=== PATIENT | female | born 1950 | race Caucasian/White ===

== ENCOUNTER 2024-12-11 13:00 | Outpatient (AMB) | payer MEDICARE, SELFPAY ==
--- OUTSIDE RECORDS SUMMARY | 2024-12-10 23:59 | XMS_ITS | Continuity of Care Document ---
Author Organization [facility] Address [address] [place] [address] [address], [address] [place] [address]- Care Team Providers Care Nuisance Animal Damage Control Agent Name Role Phone Jewel Monique MD Primary Care Physician [id number] Date(s): 12/03/24 - 12/10/24 [facility] [address] [place] [address] Drive [address] [place], [place] [address] Attending Physician: Juan Ramon Talbot MD Referring Physician: Jewel Monique MD Encounter Type: Office Visit Allergies, Adverse Reactions, Alerts Substance Criticality Severity Reaction Reaction Severity Status atenolol Active cloNIDine Active Medications Amlodipine By Mouth, Daily, 0 Refills, Maintenance, 12/03/24 8:34:00 AM EDT, Partial fill upon patient request if the prescription is for a schedule II opioid drug. Start Date: 12/03/24 Status: Ordered Repeat number: 1 Clonazepam By Mouth, 3 times a day, 0 Refills, Maintenance, 12/03/24 8:33:00 AM EDT, Partial fill upon patient request if the prescription is for a schedule II opioid drug. Start Date: 12/03/24 Status: Ordered Repeat number: 1 Flexeril 10 mg oral tablet By Mouth, Refills 0, Maintenance, 12/03/24 8:34:00 AM EDT, Partial fill upon patient request if the prescription is for a schedule II opioid drug. Start Date: 12/03/24 Status: Ordered Repeat number: 1 Losartan By Mouth, Daily, 0 Refills, Maintenance, 12/03/24 8:33:00 AM EDT, Partial fill upon patient request if the prescription is for a schedule II opioid drug. Start Date: 12/03/24 Status: Ordered Repeat number: 1 Wellbutrin By Mouth, 0 Refills, Maintenance, 12/03/24 8:33:00 AM EDT, Partial fill upon patient request if the prescription is for a schedule II opioid drug. Start Date: 12/03/24 Status: Ordered Repeat number: 1 Patient Care team information Care Team Personnel Name: Eneida MCCORMICK, Jewel Colunga Position: Reference Physician Member Role: PCP Address: [address] [place] [address] Telecom: Care Team Related Persons Name: LUIS EDUARDO AGUSTIN Insurance Providers Guarantor name: RACHELLE Health Plan Information #: 1 Payer: MEDICARE B Payer Identifier: Member Number: [id number] Group Number: Subscriber Identifier: [id number] Relationship to Subscriber: self Coverage Type: NA Coverage Verification Date: Telecom: Address: Health Plan Information #: 2 Payer: MEDEX SECONDARY ONLY Payer Identifier: Member Number: [id number] Group Number: Subscriber Identifier: [id number] Relationship to Subscriber: self Coverage Type: Medicare Other Coverage Verification Date: Telecom: Address:
--- NOTE | 2024-12-11 13:02 | A.OFFVIS_ITS ---
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 She complains on pain in the projection of the left hip trochanteric area without radiation, she also complained on pain in the right hip in the same area which she reported was treated by Dr. Rose from [facility] with 2 injections addressing pain, (Dr. Rose in his referral note stated that he perform sacroiliac joint injection however the patient states that the needles went into the trochanteric area and iliac crest.) She also complains on pain in the axial lower back which is aggravated with prolonged walking. She in fact was referred to this office by Dr. Rose t o perform sacroiliac joint fusion. She is reporting pain 7-10 out of 10 in the left trochanteric area, she reports no pain in the right trochanteric area after the steroid injections. And she reports pain 5 to 6/10 in the central lower back after walking. She also stated that the left hip was replaced and now her left leg is longer than the right leg. She reports that movements aggravate her pain. Heat applications cold applications and oral medications make her pain better. In terms of tissue damage he describes her pain as sharp, stabbing, searing, tingling, sore, aching, tiring, punishing, spreading, piercing sensation. She had an MRI of the lumbar spine and pelvis performed by [facility]. She had CT scan of the right hip performed in the [facility]. She was examined by Dr. Talbot from [facility] who diagnose her with spinal stenosis and told her that in the future she might need L4-L5 fusion for her lumbar spine. She currently completed 12 sessions of physical therapy and she continues home exercise program. She reports minimal and short-lived pain relief after physical therapy. In the past she tried 10s unit but not for the areas of the above discussed pain. She received injections as described above from Dr. Rose. Past medical history significant for hypertension, fatigue, depression and anxiety, digestive problems, arthritis, history of ovarian cyst surgery. Other surgical history includes breast biopsy for LCIS, and she had total hip replacement on the left in 2023. She denies smoking cigarettes admits 7-8 glasses of alcohol a week, she admits 2 cups of coffee a day and she denies recreational drugs. Review of Systems Const All systems reviewed & are unremarkable except as noted in HPI and below ENT Reports Normal hearing present Neuro Reports Normal hearing present, Denies Abnormal speech present, Denies confusion and Denies Sensory deficit (Neuro) Psych Denies confusion Physical Exam Vital Signs: Last Vital Signs Pulse 80 12/11/24 13:03 Resp 18 12/11/24 13:03 Pulse Ox 97 12/11/24 13:03 Oxygen Delivery Method Room Air 12/11/24 13:03 BMI result Body Mass Index 24.5 Const General: no acute distress; No confusion Orientation/consciousness: patient oriented x3 and No confusion Eyes General: appearance normal, both eyes and all related structures Pupils: Equal, round and reactive pupils present EOM: EOMs intact bilaterally Neck Neck: Yes full ROM Chest Chest palpation & inspection: normal inspection of the chest Resp Effort & Inspection: normal respiratory effort, able to speak in complete sentences, normal respiratory pattern, no audible wheezes and no cough Cardio Jugular venous distension: no JVD GI Inspection: Yes normal to inspection Back/Spine/Pelvis Other: Palomo test negative bilaterally. Gaenslen test is negative bilaterally. Pelvic compression test and pelvic distraction tests are negative bilaterally. No tenderness on palpation in projection of bilateral sacroiliac joints. Neuro General: patient oriented x3, gait normal and No confusion Cranial nerves: Yes CN's II-XII intact bilaterally, Yes Equal, round and reactive pupils present, Yes Normal hearing present and Yes Ability to bilaterally elevate shoulders present Speech: No Abnormal speech present Gait exam (Neuro): Normal gait present Motor exam (neuro): 5/5 motor strength present throughout Sensory Exam: No Sensory deficit (Neuro) Extrem Other: Very well-healed scar on the lateral surface of the left hip without the signs of inflammation or infection. General: No pedal edema Psych Speech and movement: Normal speech and movement present Affect: normal affect Attitude: cooperative Thought process: Normal thought process present Thought content: Normal thought content present Insight: Good insight present (Psych) Judgement: Good judgement present (Psych) Assessment & Plan Assessment & Plan (1) Status post total hip replacement, left: Code(s): Z96.642 - Presence of left artificial hip joint Category: Surgical (2) Left hip pain: Code(s): M25.552 - Pain in left hip Category: Medical (3) Spinal stenosis, lumbar: Code(s): M48.061 - Spinal stenosis, lumbar region without neurogenic claudication Category: Medical (4) Chronic pain syndrome: Code(s): G89.4 - Chronic pain syndrome Category: Medical Plan This patient was referred to my office to perform bilateral sacroiliac joint fusion. Unfortunately on physical exam I do not find any physical signs or symptoms of sacroiliitis. In fact patient denies any tenderness on palpation on projection of sacroiliac joints and Palomo test is completely negative. I recommended patient to bring me the MRI of the lumbar spine and pelvis which was performed in [facility], I told her that I need the report and the disc of those procedures. I also recommended her to bring me the disc of the images of the the injections she received from Dr. Rose. She will schedule appointment with me in 2 weeks and we will discuss her conditions further. Briefly DRG stimulation to help the pain in the hip was discussed with the pat alecia. Alternatively I may refer her to Orthopedic surgery for the revision of the left hip joint MARÍA. Patient Instructions: I here by testify that I spent 45 minutes in conversation with this patient as well as planning her care and organizing this note. Coding Level of Care Code New Pt Level 4 (52280) Diagnoses Status post total hip replacement, left Z96.642 Left hip pain M25.552 Spinal stenosis, lumbar M48.061 Chronic pain syndrome G89.4
[2024-12-11 13:03] VITALS: PULSE 80; RESP 18; O2SAT 97; BMI 24.5
--- OUTSIDE RECORDS SUMMARY | 2024-12-11 13:51 | XMS_ITS | Encounter Summary ---
Author Organization [facility] Address [address] [place] [address] [place] [phone] Phone Care Team Providers Care Aircraft Structural Design Engineer Name Role Phone Mayra Stringer MD Primary Care Provider [email or web address] Mayra Stringer MD Unavailable [email or web address] Channing Giordano DO Primary Care Provider Channing Giordano DO Unavailable [phone] Channing Giordano DO Unavailable [phone] Jewel Monique MD Primary Care Provider + Jewel Monique MD Primary Care Provider + Channing Giordano DO Primary Care Provider Encounter Details Date Type Department Care Team (Late st Contact Info) Description 10/11/2021 Procedure Pass [facility] - [address] [place] [address] Social History Tobacco Use Types Packs/Day Years Used Date Smoking Tobacco: Former Smokeless Tobacco: Former Alcohol Use Standard Drinks/Week Comments Yes 4 (1 standard drink = 0.6 oz pur e alcohol) Child or Family Care Answer Date Record ed Do you have problems with on e of the following making it difficult for you to work, study, or receive health care? No 12/04/2020 Education Answer Date Recorded Are you interested in help w ith more adult education (for example, completing high school, GED, job training, learning the Yoruba language, technical skills, or developing parenting skills)? No 12/04/2020 Are you concerned about learning? Not on file 12/04/2020 Not on file 12/04/2020 Not on file 12/04/2020 Food Answer Date Recorded Within the past 6 months we worried whether our food would run out before we got money to buy more. Never True 12/04/2020 Within the past 6 months the food we bought just didn't last and we didn't have enough money to get more. Never True Paying for Meds Answer Date Recorded Do you have trouble paying for medicines? No 12/04/2020 Paying Utility Bills Answer Date Record ed Do you have trouble paying your heating or elect ricity bill? No 12/04/2020 Transportation Answer Date Recorded Has the lack of transportati on kept you from medical appointments or from getting medications? No 12/04/2020 Comments No Sex and Gender Information Value Date Recorded Sex Assigned at Female 04/12/2021 8:37 AM EST Legal Sex Female 6:16 PM EST Gender Identity Female 04/12/2021 8:37 AM EST Sexual Orientation Not on file documented as of this encounter Plan of Treatment Not on file documented as of this encounter Visit Diagnoses Not on filedocumented in this encounter Additional Health Concerns Assessment Noted Time PHQ-2 Depression Total Score: 0 12/05/19 10:15 AM EDT documented as of this encounter Care Teams Aircraft Structural Design Engineer Relationship Specialty Start Date End Date Mayra Stringer MD [email or web address] PCP - General Family Medicine 06/22/20 06/02/22 Channing Giordano DO [address] [place] [address], [address] [place] [address] PCP - General Internal Medicine 06/03/22 08/28/24 Jewel Monique MD [address] [place] [id number] PCP - General Internal Medicine 08/29/24 09/01/24 Jewel Monique MD [address] [place] [address] [address] [place] [address] PCP - General Internal Medicine 09/04/24 10/23/24 Channing Giordano DO [address] [place] [id number] PCP - General Internal Medicine 10/24/24 Mayra Stringer MD [email or web address] Insurance Assigned Provider 02/27/21 07/02/22 Channing Giordano DO [address] [place] [address] Insurance Assigned Provider 10/01/22 04/01/23 Channing Giordano DO [address] [place] [id number] Insurance Assigned Provider 07/28/24 documented as of this encounter Additional Source Comments The information contained in this document represents components of the legal health record. It is not the complete legal health record.[facility]
== END 2024-12-11 13:36 | disposition home or self-care (01) ==
LOC: HO.PMC 13:01
PROVIDERS: PCP Student in an Organized Health Care Education/Training Program; Referring Provider Physical Medicine & Rehabilitation; Visit Provider Anesthesiology
DX: G89.4 Chronic pain syndrome (principal); M25.552 Pain in left hip; M48.061 Spinal stenosis, lumbar region without neurogenic claudication; Z96.642 Presence of left artificial hip joint
CPT/HCPCS: 99204

== ENCOUNTER → 2024-12-11 13:00 | Outpatient (BNVA) | payer MEDICARE, SELFPAY | PROVIDERS: PCP Student in an Organized Health Care Education/Training Program; Referring Provider Physical Medicine & Rehabilitation; Visit Provider Anesthesiology | DX: M25.552 Pain in left hip (principal); M48.061 Spinal stenosis, lumbar region without neurogenic claudication; G89.4 Chronic pain syndrome; Z96.642 Presence of left artificial hip joint | CPT/HCPCS: 99202 ==